=== PATIENT | male | born 1995 | race Caucasian/White ===

== ENCOUNTER 2017-05-15 18:11 | Emergency (ER) | payer MEDICAID, SELFPAY ==
[2017-05-15] MEDS ORDERED: Acetaminophen 500 MG TAB ONE (18:32)
[2017-05-15] MEDS ORDERED: Ondansetron ODT 4 MG TAB ONE (18:32)
== END 2017-05-15 18:59 | disposition home or self-care (01) ==
LOC: SCSER 18:11
DX: B34.9 Viral infection, unspecified (principal); K21.9 Gastro-esophageal reflux disease without esophagitis; F17.210 Nicotine dependence, cigarettes, uncomplicated
CPT/HCPCS: 87081; 87430; 87804; 99283; Q0162